=== PATIENT | female | born 1945 | race Caucasian/White ===

== ENCOUNTER 2017-10-15 19:11 | Emergency (ER) | END 2017-10-16 06:15 | disposition home or self-care (01) ==

== ENCOUNTER 2017-10-17 11:38 | Emergency (ER) | END 2017-10-17 17:56 | disposition home or self-care (01) ==

== ENCOUNTER 2018-12-16 06:34 | Day surgery (SDC) | payer BC ==
[2018-12-16] VITALS (14 sets, daily range): BP systolic 90–144; BP diastolic 41–64; PULSE 60–78; RESP 15–20; Ht 160 cm; Wt 75.8 kg
[~2018-12-16] VITALS: Ht 160 cm; Wt 75.8 kg
[~2018-12-16 06:34] MED LIST: ASPI-535 PO; BENA40TA56 PO; BUPR1PAT20 TD; CEFAZOLIN 2 GM/50 ML (PMX) 50 ML IVPB SCH; DICL112S2 TP; DOCU-144 PO; GABA300C16 PO; HYDR25TA6 PO; LIDO35.415 TP; METO-429 PO; SOD CHLORIDE 0.9% 1,000 ML IV ONE
[2018-12-16] MEDS ORDERED: ATOR10TA65 PO (08:11)
[2018-12-16] MEDS ORDERED: BUPIVACAINE 0.5% (SDV) 30 ML INJ ONE (08:38)
--- NOTE | 2018-12-16 08:49 | PREAC ---
Date/Time of Note Date/Time of Note DATE: 12/16/18 TIME: 08:48 Anesthesia Eval and Record Evaluation Time Pre-Procedure Interview DATE: 12/16/18 TIME: 08:48 Age 72 Sex female NPO: 8 hrs Preoperative diagnosis cholelithiasis Planned procedure laparoscopic cholecystectomy Past Medical History Past Medical History: Includes Cardio: HTN, Dyslipidemia Endo: Diabetes Musculoskeletal: Osteoarthritis Renal: CKD Surgery & Anesthesia Issues No known issue Meds Anticoagulation: No Beta Alethea within 24 hr: Yes Reason Beta Alethea not given: Bradycarida, Hypotension Reported Medications Atorvastatin Calcium (Atorvastatin Calcium) 10 Mg Tablet, 10 MG PO QHS, #30 TAB 12/16/18 Aspirin Ec (Aspir 81) 81 Mg Tablet.dr, 81 MG PO DAILY, #30 TAB 10/16/17 Hydrochlorothiazide* (Hydrochlorothiazide*) 25 Mg Tab, 25 MG PO DAILY, #30 TAB 10/16/17 Metoprolol Tartrate* (Lopressor*) 50 Mg Tab, 50 MG PO BID, #60 TAB 10/16/17 Benazepril Hcl* (Benazepril Hcl*) 40 Mg Tablet, 40 MG PO DAILY, #30 TAB 10/16/17 Discontinued Reported Medications Lidocaine (LIDOCAINE) 35.44 Gm Oint...g., 2 GM TP QID, #1 TUB 10/17/17 Diclofenac Sodium (Pennsaid) 112 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 10/16/17 Buprenorphine (Buprenorphine) 1 Each Patch.tdwk, 1 EACH TD Q7D 10/16/17 Discontinued Scripts Docusate Sodium* (Colace*) 100 Mg Capsule, 100 MG PO TID, #30 CAP Prov:ISHA MCELROY 10/16/17 Current Medications Cefazolin Sodium/ Dextrose 50 ml @ 100 mls/hr PRE-OP IVPB ; Start 12/16/18 at 06:00; Stop 12/16/18 at 15:00 Sodium Chloride 1,000 ml @ 75 mls/hr [id number] ONCE IV ; Start 12/16/18 at 06:00; Stop 12/16/18 at 19:19 Meds reviewed: Yes Allergies Coded Allergies: No Known Allergy (Unverified , 12/16/18) Allergies Reviewed: Yes Labs/Studies Labs Reviewed: Reviewed by anesthesiologist test: N/A Pre-procedure Exam Last vitals Vital Signs Date Temp Pulse Resp B/P (MAP) Pulse Ox O2 O2 Flow FiO2 Time Delivery Rate 12/16/18 97.9 60 18 144/64 98 Room Air 08:31 (90) Airway: Adequate mouth opening, Adequate thyromental dist Mallampati: Mallampati II Teeth: Normal Lung: Normal Heart: Normal ASA Physical Status ASA physical status: 3 Emergency: None Planned Anesthetic General/MAC: ETT Nerve block: TAP (bilateral) Planned Pain Management Single shot nerve block, Parenteral pain med Pre-operative Attestations Prior to commencing anesthesia and surgery, the patient was re-evaluated, there was verification of: *The patient's identity *The results of appropriate recent lab work and preoperative vital signs *The above evaluation not changing prior to induction *Anesthetic plan, risk benefits, alternative and complications discussed with patient/family; questions answered; patient/family understands, accepts and wishes to proceed. Aeronautical Engineering Technologist used JIM REYNA MD Dec 16, 2018 08:48
[2018-12-16] MEDS ORDERED: EPHEDrine SULFATE 50 MG/5 ML SYG IV PRN (09:00)
[2018-12-16] MEDS ORDERED: hydrALAzine 20 MG INJ IV PRN (09:00)
[2018-12-16] MEDS ORDERED: OXYCODONE/ACETAMINOPHEN (5/325) TAB PO PRN (09:00)
[2018-12-16] MEDS ORDERED: MEPERIDINE 25 MG INJ IV PRN (09:00)
[2018-12-16] MEDS ORDERED: FENTAnyl 50 MCG/ML VIAL IV PRN (09:00)
[2018-12-16] MEDS ORDERED: DIPHENHYDRAMINE 50 MG INJ IV PRN (09:00)
[2018-12-16] MEDS ORDERED: ONDANSETRON 4 MG INJ IV PRN ×2 (09:00→11:00)
[2018-12-16] MEDS ORDERED: LABETALOL HCL 20MG INJ IV PRN (09:00)
[2018-12-16] MEDS ORDERED: HYDROmorphONE 1 MG/5 ML IV SYRINGE IV PRN (09:00)
--- NOTE | 2018-12-16 09:00 | HPN ---
Date/Time of Note Date/Time of Note DATE: 12/16/18 TIME: 08:59 Interval H&P Admission Note Pt. seen H&P reviewed: No system changes ABDULLAHI SUTHERLAND MD Dec 16, 2018 09:00
[2018-12-16] MEDS ORDERED: FENTAnyl 50 MCG/ML VIAL ONE (09:07)
[2018-12-16] MEDS ORDERED: PROPOFOL 20 ML ONE (09:07)
[2018-12-16] MEDS ORDERED: LIDOCAINE 2% (SDV) 5 ML INJ ONE (09:07)
[2018-12-16] MEDS ORDERED: SUCCINYLCHOLINE CHLORIDE 100 MG/5 ML SYG IV ONE (09:07)
[2018-12-16] MEDS ORDERED: ROPIVACAINE 0.5 % 30 ML VIAL ONE (09:07)
[2018-12-16] MEDS ORDERED: ROCURONIUM 50 MG INJ ONE (09:07)
[2018-12-16] MEDS ORDERED: ONDANSETRON 4 MG INJ ONE (09:30)
[2018-12-16] MEDS ORDERED: EPHEDrine SULFATE 50 MG/5 ML SYG ONE (09:32)
[2018-12-16] MEDS ORDERED: NEOSTIGMINE 10 MG INJ ONE (10:41)
[2018-12-16] MEDS ORDERED: GLYCOPYRROLATE 0.4 MG INJ ONE (10:41)
[2018-12-16] MEDS ORDERED: SUGAMMADEX SODIUM 200 MG/2 ML VIAL IV ONE (10:49)
[2018-12-16] MEDS ORDERED: hydrALAzine 20 MG INJ ONE (10:52)
--- NOTE | 2018-12-16 10:57 | OPR ---
Date/Time of Note Date/Time of Note DATE: 12/16/18 TIME: 10:49 Operative Report Procedure Date: Dec 16, 2018 Preoperative Diagnosis Cholelithiasis/chronic cholecystitis Postoperative Diagnosis Cholelithiasis/chronic cholecystitis Operation/Procedure Performed Laparoscopic cholecystectomy Surgeon see signature line Guest Services Lead None Anesthesia Type: general Anesthesiologist: JIM REYNA MD Estimated Blood Loss: minimal Transfusion none Specimen Gallbladder Grafts/Implants none Complications none Pt Condition Post Procedure: stable Disposition: PACU Indications The patient is a 72-year-old female with multiple comorbidities who presented to the office with complaints of right upper quadrant abdominal pain. The patient had clinical signs and symptoms of biliary colic and chronic cholecystitis which was confirmed via a CT scan of the abdomen and pelvis which was performed during an emergency room visit which showed the presence of gallstones. The patient was scheduled for laparoscopic cholecystectomy; possible open as definitive treatment to prevent further sequelae of gallstone disease which include but are not limited to: Gangrenous cholecystitis, choledocholithiasis, gallstone pancreatitis, ascending cholangitis, etc. All risks and benefits of the procedure including but not limited to: Wound infection, excessive bleeding, common bile duct injury, postoperative biliary leak, retained common bile duct stone, injury to intra-abdominal organs, conversion to open procedure, possible need for subsequent surgeries, etc. were all explained to the patient in full detail. She fully understood and wished to proceed with the procedure. Informed consent was therefore obtained. Medical clearance was obtained prior to the procedure. Procedure Description The patient was brought to the operating room and placed supine on the operating table. Bilateral sequential compression devices were placed on both lower extremities. A dose of broad-spectrum perioperative intravenous antibiotics was given. After the induction of smooth general endotracheal anesthesia the patient's abdomen was prepped and draped in the standard surgical fashion. A tap block was performed by the anesthesiologist and will be documented by her separately. The patient had a lower midline incision just to the left of midline from prior surgery. After performance of the surgical timeout a 1 cm incision was made in the inferior umbilicus and carried down through the subcutaneous tissues to the level of the anterior rectus fascia using a combination of blunt dissection and Bovie electrocautery. The anterior rectus fascia was then grasped between 2 Bowie clamps and incised. Stay sutures of 0 Vicryl placed on either side of the fascia. Peritoneal cavity was entered atraumatically. Blunt finger sweep was performed. There were no adhesions. A 12 mm trocar was then placed through this incision site. Pneumoperitoneum was then obtained and a 5 mm laparoscope was placed. Three further working ports were then placed a 5 mm port in the sub-xiphoid region and two 5 mm ports in the right upper quadrant. All port sites were anesthetized with 0.5% Marcaine prior to incision. A contracted and chronically fibrosed gallbladder was identified in the right upper quadrant. Using atraumatic graspers the gallbladder was grasped and retracted superiorly and laterally exposing the area of Burt's pouch. Given the chronic fibrosis, mobility was somewhat limited on gallbladder retraction. Therefore, the gallbladder was mobilized from its peritoneal attachments to the liver. This enabled better retraction and visualization. Dissection was begun in the area of the cystic duct structures using a combination of blunt dissection and hook electrocautery. Thick peritoneal fat was dissected off. There was a lot of chronic fibrotic adhesions in this area. The cystic duct was identified as it entered straight into the neck of the gallbladder. It was dissected free of surrounding tissues and clipped proximally and distally x 3 and transected using EndoShears. Dissection was then continued posteriorly. A short cystic artery was identified coming off of the right hepatic artery. It was tediously dissected free of surrounding tissues and transected using the hook electrocautery very close to the gallbladder. The gallbladder was then dissected off the liver bed using electrocautery. There was dense fibrosis of the gallbladder to the liver bed. Once completely free the gallbladder was placed in an Endo Catch bag and withdrawn through the umbilical port site and passed off the field as specimen. Hemostasis was then inspected for and noted to be adequate. The abdomen was then irrigated with several liters of warm normal saline and the irrigant returned crystal clear. The fascia of the umbilical port site was then reapproximated using a evelio-close device. Pneumoperitoneum was then released and all remaining trochars were withdrawn under direct vision. Stay sutures on the anterior rectus fascia were then tied down. The subcutaneous tissues were irrigated with more warm normal saline. The skin was then reapproximated using 4-0 Monocryl sutures in subcuticular fashion. The incisions were cleaned and Dermabond was applied to the incisions and the patient was awoken from anesthesia and transported to the recovery room in stable condition. All counts were correct at the end of the case x 2. ABDULLAHI SUTHERLAND MD Dec 16, 2018 10:57
[2018-12-16] MEDS ORDERED: morphine 2 MG INJ IV PRN (11:00)
[2018-12-16] MEDS ORDERED: HYDROCODONE/APAP (5/325) TAB PO PRN ×2 (11:00)
[2018-12-16] MEDS: HYDROmorphONE 1 MG/5 ML IV SYRINGE IV PRN ×2 (11:01→11:09)
--- NOTE | 2018-12-16 11:02 | PAC ---
Date/Time of Note Date/Time of Note DATE: 12/16/18 TIME: 11:00 Post-Anesthesia Notes Post-Anesthesia Note Last documented vital signs Vital Signs Date Temp Pulse Resp B/P (MAP) Pulse Ox O2 O2 Flow FiO2 Time Delivery Rate 12/16/18 98.1 10:32 12/16/18 60 18 144/64 98 Room Air 08:31 (90) Activity: WNL Respiratory function: WNL Cardiovascular function: WNL Mental status: Baseline Pain reasonably controlled: Yes Hydration appropriate: Yes Nausea/Vomiting absent: Yes Comments BP: 139/68 HR: 75 RR: 15 T: 98.1 Sao2: 99% JIM REYNA MD Dec 16, 2018 11:02
== END 2018-12-16 14:10 | disposition home or self-care (01) ==
LOC: SDS 06:34
PROVIDERS: ATTEND Surgery
DX: K80.10 Calculus of gallbladder with chronic cholecystitis without obstruction (principal); I10 Essential (primary) hypertension; E11.9 Type 2 diabetes mellitus without complications; E78.5 Hyperlipidemia, unspecified
CPT/HCPCS: 47562; 82962; 88304; J0360; J1170; J2175; J2405; J2710; J2795; J3010; Z7512; Z7610